=== PATIENT | male | born 1955 | race Caucasian/White ===

== ENCOUNTER 2016-07-31 07:34 | Inpatient (IN) | payer BC ==
[2016-07-31] VITALS (252 sets, daily range): BP systolic 106–111; BP diastolic 63–67; PULSE 85–108; TEMP 97.9–99.4; O2SAT 91–98
[~2016-07-31] VITALS: Ht 170.2 cm; Wt 106.3 kg
[~2016-07-31 07:34] MED LIST: 00186-0370-20 IH; ACETAMINOPHEN W1 TA6 PO; ACTOS 45MG45 MG/TAB PO; ALBUTEROL0.83 MG/ML IH; AMOXICILLIN 8751 TAB PO; ATROVENT INHALE14 GM IH; BYETTA 10M600 MCG/SY SQ; CLEOCIN HC150 MG/CAP PO; FORADIL IH; GLUCOPHAGE XR500 M1 PO; GLUCOTROL XL10 MG PO; GLUCOTROL XL2.5 MG PO; IPRATROPIUM 2.2.5 ML IH; IPRATROPIUM BROM3 M1 IH; LEVAQUIN 5500 MG/TA1 PO; LEXAPRO 10MG10 MG PO; LISINOPRIL10 MG PO; NORCO 325 MG-51 TAB PO; PREDNISONE10 MG PO; PREDNISONE20 MG PO; PROAIR HFA0.09 MG/AC IH; TAMIFLU 75MG75 MG PO; THEO-DUR 3300 MG/TAB PO; VIAGRA100 M1 PO; ZANTAC 150MG T150 MG PO; ZESTRIL40 MG PO; ZETIA 10MG TAB10 MG PO; ZITHROMAX Z PA250 MG PO; ZOCOR 40MG40 MG PO; ZOFRAN 4MG T4 MG/TAB PO; ZOFRAN ODT4 MG PO; ZOFRAN4 MG PO; ZYRTEC 10MG10 MG PO; [UNRECOGNIZED DRUG - OTHER] NS
[2016-07-31 08:04] LABS: HEMATOCRIT 49.3 % (42.0-52.0); MEAN CELL VOLUME 86 fl (80.0-100.0); MEAN CORPUSCULAR HEMOGLOBIN 28 pg (27.0-31.0); MEAN CORPUSCULAR HGB CONC 33 g/dl (33.0-37.0); PLATELET COUNT 337 K/mm3 (130-400); RED BLOOD COUNT 5.72 M/mm3 (4.20-5.60); REDCELL DISTRIBUTION WIDTH-CV 14.6 % (11.5-14.5)
[2016-07-31 08:10] LABS: ADD PATHOLOGY DIFF REVIEW NO; WHITE BLOOD COUNT 29.8 K/mm3 (4.8-10.8)
[2016-07-31 08:25] LABS: ADJUSTED CALCIUM 9.4 mg/dL (8.4-10.2); ALANINE AMINOTRANSFERASE 28 U/L (21-72); ALBUMIN 4.8 gm/dL (3.5-5.0); ALKALINE PHOSPHATASE 113 U/L (50-136); ANION GAP 15 mmol/L (7-16); BILIRUBIN,TOTAL 0.7 mg/dL (0.0-1.0); BLOOD UREA NITROGEN 30 mg/dL (9-20); CARBON DIOXIDE 18 mmol/L (22-30); CHLORIDE 105 mmol/L (98-107); CREATININE, serum 1.73 mg/dL (0.66-1.25); GLUCOSE 210 mg/dL (74-106); LIPASE 616 U/L (23-300); SODIUM 138 mmol/L (137-145)
[2016-07-31 08:28] LABS: POTASSIUM 6.6 mmol/L (3.4-5.0)
[2016-07-31 08:29] LABS: C-REACTIVE PROTEIN < 0.5 mg/dL (0.0-0.9)
[2016-07-31 08:36] LABS: BAND 37 % (0-10); NEUTROPHILS 46 % (42.0-75.2); PLATELET ESTIMATE INCREASED (NORMAL); TOTAL CELLS COUNTED 100
[2016-07-31 11:27] LABS: HYALINE CAST >12 /lpf; PH 5 (5-8); SQUAMOUS EPITHELIAL 0-2 /hpf; URINE APPEARANCE Hazy; URINE BACTERIA None Seen /hpf; URINE BILIRUBIN Negative (NEGATIVE); URINE BLOOD Negative (NEGATIVE); URINE COLOR Yellow; URINE GLUCOSE Negative (NEGATIVE); URINE KETONE Negative (NEGATIVE); URINE RBC 0-2 /hpf; URINE UROBILINOGEN Negative (NEGATIVE); URINE WBC 0-2 /hpf
[2016-07-31 14:08] LABS: B-TYPE NATRIURETIC PEPTIDE 43 pg/mL (0-125)
[2016-07-31 14:54] LABS: TROPONIN-I < 0.012 ng/mL (0.000-0.034)
[2016-08-01 00:25] VITALS: BP 115/69; PULSE 80; TEMP 99.3
[2016-08-01 04:00] VITALS: BP 128/79; PULSE 79; TEMP 98
[2016-08-01 06:04] LABS: MEAN CELL VOLUME 86 fl (80.0-100.0); MEAN CORPUSCULAR HGB CONC 32 g/dl (33.0-37.0); MEAN PLATELET VOLUME 10.5 fl (7.4-10.4); RED BLOOD COUNT 3.95 M/mm3 (4.20-5.60); REDCELL DISTRIBUTION WIDTH-CV 14.7 % (11.5-14.5); WHITE BLOOD COUNT 11.4 K/mm3 (4.8-10.8)
[2016-08-01 06:07] LABS: HEMATOCRIT 33.8 % (42.0-52.0); HEMOGLOBIN 10.9 g/dl (13.5-18.0); MEAN CORPUSCULAR HEMOGLOBIN 28 pg (27.0-31.0); PLATELET COUNT 187 K/mm3 (130-400)
[2016-08-01 06:08] LABS: ADD PATHOLOGY DIFF REVIEW NO
[2016-08-01 06:22] LABS: CREATININE, serum 1.12 mg/dL (0.66-1.25)
[2016-08-01 06:27] LABS: POTASSIUM 3.7 mmol/L (3.4-5.0)
[2016-08-01 07:26] LABS: BAND 26 % (0-10); EOSINOPHIL 2 % (0-4); NEUTROPHILS 50 % (42.0-75.2); TOTAL CELLS COUNTED 100; TOXIC GRANULATION PRESENT
[2016-08-01 07:32] LABS: PLATELET ESTIMATE NORMAL (NORMAL)
[2016-08-01 07:45] VITALS: BP 100/59; PULSE 84; TEMP 97.9
[2016-08-01] MEDS ORDERED: DOXYCYCLINE 10100 MG PO (10:54)
[2016-08-01] MEDS ORDERED: FLAGYL500 MG PO (11:00)
[2016-08-02 07:48] LABS: ROCKY MOUNTAIN SPOT FEVER-ABS <1:16 (<1:16)
[2016-08-27 14:32] LABS: EHRLICHIA-ANAPLASMA DNA BY PCR XXX; WEST NILE VIRUS IGM XXX
== END 2016-08-01 12:00 | disposition home or self-care (01) | DRG 918 ==
LOC: COL.ER 07:34 → ICU 09:52 → IMCU 09:52 → ICU 09:52
PROVIDERS: Emergency Medicine; Family Medicine
DX: T62.91XA Toxic effect of unspecified noxious substance eaten as food, accidental (unintentional), initial encounter (principal); E87.1 Hypo-osmolality and hyponatremia; E86.0 Dehydration; E87.5 Hyperkalemia; E11.9 Type 2 diabetes mellitus without complications; G47.33 Obstructive sleep apnea (adult) (pediatric); R55 Syncope and collapse; I95.9 Hypotension, unspecified; N28.9 Disorder of kidney and ureter, unspecified; A08.4 Viral intestinal infection, unspecified
CPT/HCPCS: 99222-AI; 99239; C9113; J0610; J1644; J1815; J1956; J2405; J7030

== ENCOUNTER 2019-03-25 18:34 | Emergency (ER) | payer BC ==
[~2019-03-25] VITALS: Ht 167.6 cm; Wt 97.7 kg
[~2019-03-25 18:34] MED LIST changes: +DOXYCYCLINE 10100 MG PO; +FLAGYL500 MG PO
[2019-03-25 18:39] VITALS: BP 131/70; TEMP 97.9
[2019-03-25 20:59] VITALS: PULSE 99
== END 2019-03-25 20:59 | disposition home or self-care (01) ==
LOC: COL.ER 18:34
DX: S61.217A Laceration without foreign body of left little finger without damage to nail, initial encounter (principal); I10 Essential (primary) hypertension; E11.9 Type 2 diabetes mellitus without complications; F32.9 Major depressive disorder, single episode, unspecified; J45.909 Unspecified asthma, uncomplicated; E78.5 Hyperlipidemia, unspecified; F17.210 Nicotine dependence, cigarettes, uncomplicated; Z88.1 Allergy status to other antibiotic agents; Z88.5 Allergy status to narcotic agent; Z79.84 Long term (current) use of oral hypoglycemic drugs; W26.8XXA Contact with other sharp object(s), not elsewhere classified, initial encounter; Y93.G1 Activity, food preparation and clean up; Y92.009 Unspecified place in unspecified non-institutional (private) residence as the place of occurrence of the external cause